=== PATIENT | female | born 1965 | race Caucasian/White ===

== ENCOUNTER → 2016-04-28 | Outpatient (CLI) | payer OTHER ==
[~2016-04-28] VITALS: Ht 175.3 cm; Wt 57.7 kg
[~2016-04-28] MED LIST: ADVAIR 250-501 EACH IH; ALBUTEROL INH INH; ALPRAZOLAM; ALPRAZOLAM PO; B12INJ IM; BUTRANS1 EAC1 TD; CELEBREX; CHANTIX1 MG PO; CYMBALTA30 MG PO; CYMBALTA60 MG PO; DESYREL50 MG PO; DILAUDID 2 MG TA2 MG PO; DILAUDID 4 MG TA4 M1 PO; DILAUDID4 MG PO; DOLOPHINE HCL10 MG; DURAGESIC1 EAC2 TD; EPIPEN 2-P0.3 MG/0.3 IM; FENTANYL PA25 MCG/HR TP; FENTANYL PA50 MCG/HR TP; FENTANYL PATCH75 MCG TP; FUROSEMIDE PO; IMITREX20 MG; KEFLEX500 MG PO; LYRICA 75 MG CA75 MG; LYRICA 75 MG CA75 MG PO; MAGNES PO; MAGNESIUM OXID400 MG PO; MEDROL4 MG PO; MEDROLDOSEPACK PO; METHADONE HCL 110 M1 PO; OMEPRAZOLE40 MG PO; OXYCODONE HCL15 MG PO; OXYCODONE HCL30 MG PO; PRILOSEC40 MG PO; RESTORIL15 MG PO; SUBOXONE 2 MG-1 EACH SL; SUBOXONE 8 MG-1 EAC1 SL; SUBOXONE 8 MG-1 EAC2 SL; TRAZODONE HCL50 MG PO; TRAZODONE PO; VALIUM10 MG PO; VENTOLIN HFA INH8 GM INH; VITAMIN D 5050000 I1 PO; VOLTAREN GEL 1100 G1 TOP; VOLTAREN100 GM TP; XANAX 0.5 MG0.5 M1 PO; XANAX 0.5 MG0.5 MG PO; XANAX XR1 MG PO; ZOLOFT 50 MG TA50 M1 PO; ZPAK PO
--- NOTE | ~2016-04-28 | HPC ---
[facility] [place] [address] PAIN MANAGEMENT CONSULTATION Name: MARCO CUMMINS Room #: REG [facility].#: [id number] Admission: 04/28/16 Attend Phys: Aldo Trivedi MD Discharge: Date of : 67 Report #: [id number] THIS REPORT FOR: //name// CC: Alex Trivedi DATE OF SERVICE: 04/28/2016 Followup visit for management of high risk medication. The patient returns to pain clinic today complaining mostly of pain in her right wrist where she has sustained an injury after a fall. I am seeing her now on a monthly basis, last seen on 04/01/2016. Urine drug screen at her last visit was appropriate. I told her that today I would provide medication for 2 months, but would not continue back on to 3 months schedule with her. She came back about 14 pounds that she had lost earlier in the year. No cause for weight loss, other than psychogenic causes with depression and anorexia have been identified. Current dose of medication is methadone 10 mg twice daily and hydromorphone 4 mg 3 times daily. She denies any significant side effects, has given me her word once again that all medications were locked up and no medications are out of her control. We reviewed her most recent urine drug screen, which shows methadone and hydromorphone as expected as well as other medications prescribed outside of our clinic including naproxen, trazodone and benzodiazepine metabolites for medicines prescribed through Dr. Gonzalez's office. PHYSICAL EXAMINATION: GENERAL: Affect is swollen. VITAL SIGNS: Blood pressure 125/85 and heart rate 78. She is 5 feet 9 and 127 pounds. BMI is 18.8. EXTREMITIES: Examination of the right wrist reveals allodynia and ____ vascular changes into the hand. She has good range of motion of the shoulder as well as the elbow. She has difficulty with movement in all direction of the wrist, which remains swollen. She has diffuse myofascial pains consistent with fibromyalgia. She has pain across her low back. Scarring from previous back surgery as well as her spinal cord stimulators examined and also mildly tender. She reports that her radicular symptoms from stimulator effectively controlled. IMPRESSION: 1. Chronic intractable pain with multiple pain generators. History of reflex sympathetic dystrophy, chronic back pain, fibromyalgia and arthropathy. 2. Recent fracture, right wrist and forearm. 3. Management of high risk medication. [address] [address] PAIN MANAGEMENT CONSULTATION Name: MARCO CUMMINS [id number] Admission: 04/28/16 Attend Phys: Aldo Trivedi MD Discharge: Date of : 67 Report #: [id number] PLAN: 1. I renewed her medication and we will continue close followup. 2. Follow up in the pain clinic in 3 months. <ELECTRONICALLY SIGNED> By: Aldo Trivedi MD 04/30/16 1329 1636 14 Aldo Trivedi MD /kam
[2016-04-28 13:14] VITALS: BP 125/85
== END ==
LOC: PAIN 04-27 08:09
DX: G89.29 Other chronic pain (principal); Z87.891 Personal history of nicotine dependence

== ENCOUNTER → 2016-08-30 | Outpatient (CLI) | payer OTHER ==
[~2016-08-30] VITALS: Ht 175.3 cm; Wt 59.0 kg
--- NOTE | ~2016-08-30 | HPC ---
[facility] [address] [place] [address] PAIN MANAGEMENT CONSULTATION Name: MARCO CUMMINS [facility] [id number] Admission: 08/30/16 Attend Phys: Aldo Trivedi MD Discharge: Date of : 67 Report #: [id number] THIS REPORT FOR: //name// CC: Alex Trivedi DATE OF SERVICE: 08/30/2016 Followup visit for chronic pain, history reflex sympathetic dystrophy and fibromyalgia. The patient returns to pain clinic today. In my absence, she saw my partner, Dr. Regan Guo on June 24 who provided her with 2 months of medication. When I saw her in the fall and in the spring of 2015, she had lost 14 pounds, was frail, pain was severe and she looked terrible. I have asked her to continue to follow closely with Dr. Gonzalez. She has suffered throughout 20 years that I have known her from chronic depression and anxiety. She also has a history of right breast cancer with lumpectomy. She had had benign tumors resected as well, all of this of course concerning with her weight loss. She returns to clinic today and I will report that she looks better. She has gained back some of the weight that she had lost and her BMI is now 19.2. At her peak, she was 24.1. Her marc was 16.6. She reports that she is drinking heavy cream and drinking other caloric food intakes in order to keep weight up. We talked about eating a good diet. She continues on opioid analgesics and her urine drug screens have been appropriate. There have been no additional drugs. No other co-polypharmacy medications that might be contributing to her weight decline. She has been taking opioids as far back as the and we have tapered her medication over the years. Today, she reports that with medication, her pain is 6-7/10 and she appears much more comfortable. Pain is worse with movement. She described it as all over. She does have a small area of scrape on her left knee where she fell. There are some warmth around the area, but it does not look pathologic to me. MEDICATIONS: Reviewed and reconciled. PHYSICAL EXAMINATION: GENERAL: Her affect is pleasant and upbeat. She scores her pain as a 5 today. This is a good number for her. VITAL SIGNS: Blood pressure is 120/70, heart rate 60. She is 5 feet and 9 inches with a BMI of 19.2. EXTREMITIES: She moves easily from sitting to standing position, walks without antalgic features. She has tenderness across her low back and multiple [address] [address] PAIN MANAGEMENT CONSULTATION Name: MARCO CUMMINS Room #: REG [facility] Dayday#: [id number] Admission: 08/30/16 Attend Phys: Aldo Trivedi MD Discharge: Date of : 67 Report #: [id number] myofascial tender points. IMPRESSION: 1. Chronic intractable pain with history of sympathetic dystrophy and chronic back pain, fibromyalgia and arthropathy. 2. Management of high risk medications under terms of an opioid agreement. 3. History of depression and insomnia, improved. 4. Complex regional pain syndrome history. PLAN: 1. I have renewed her medications under agreement. 2. I have asked for urine drug screen again today. 3. I have reviewed the opioid contract and her responsibilities for safeguarding all medications, taking them as prescribed. Time counseling the patient 20 minutes. Followup visit scheduled in 3 months. By: [id number] Aldo Trivedi MD /nt
[2016-08-30 10:03] VITALS: BP 120/70
== END ==
LOC: PAIN 06:59
DX: M54.9 Dorsalgia, unspecified (principal); G89.29 Other chronic pain; M79.7 Fibromyalgia; M12.9 Arthropathy, unspecified; F32.9 Major depressive disorder, single episode, unspecified; G47.00 Insomnia, unspecified

== ENCOUNTER → 2016-12-06 | Outpatient (CLI) | payer OTHER ==
[~2016-12-06] VITALS: Ht 175.3 cm; Wt 59.0 kg
--- NOTE | ~2016-12-06 | HPC ---
[facility] [place] [address] PAIN MANAGEMENT CONSULTATION Name: MARCO CUMMINS Room #: REG [facility].#: [id number] Admission: 12/06/16 Attend Phys: Aldo Trivedi MD Discharge: Date of : 67 Report #: [id number] THIS REPORT FOR: //name// CC: ALINA Trivedi DATE OF SERVICE: 12/06/2016 Followup visit for chronic low back pain, complex regional pain syndrome, management of high risk medication. The patient returns to pain clinic today for renewal of medication. I have been following her case for over 15 years. I remember when her first grandchild was born. That Baby is now 13. She has 10 grandchildren. She is living with her in [place], [place]. Family is locl and she has opportunity to spend time with grandchildren. She reports today that her pain score is an 8/10, chronic bilateral hip pain. Also, she complains of pain all over, burning, cramping, aching. She has a spinal cord stimulator, which has helped with her complex regional pain syndrome pain. She has been receiving opioids for over 10 years. She is on an opioid agreement, which has been signed ____ appointment including today's review her responsibilities with the medication. We talked about the opioid crisis in the [place], how medications can be used carefully taken under terms of strict agreement. Any diversion of medication is a federal offence, that led to our most recent urine drug screen. She had no Dilaudid in her drug screen performed on 08/30/2016. She reported that she had taken all her medication. Today, she reports that she had had a tablet this morning, so I repeated the urine drug screen. Methadone, which is ordered was noted in her last urine drug screen and this is provided to her through our clinic. I did notice as well that 1 year ago there was separate opioid, codeine noted in her urine, so she has had two urine drug screens that are not consistent with medications prescribed under terms of our agreement. I told her that if today we see any discrepancy then I will no longer be able to prescribe her medication for her. PHYSICAL EXAMINATION: GENERAL: She is in no current distress. She seems to be in a bad mood today. VITAL SIGNS: Her blood pressure is 127/66, heart rate is 52, respirations 14, BMI is 19.2. NECK: She has minimal tenderness of the neck. CHEST: [place] [address] PAIN MANAGEMENT CONSULTATION Name: MARCO CUMMINS Room #: REG [facility]#: [id number] Admission: 12/06/16 Attend Phys: Aldo Trivedi MD Discharge: Date of : 67 Report #: [id number] CARDIAC: Rhythm is regular. ABDOMEN: Soft. EXTREMITIES: Examination of the spine reveals mild tenderness. The spinal cord stimulator is nontender. She has mild pain in her legs. MUSCULOSKELETAL: She walks with antalgic features. IMPRESSION: 1. Chronic intractable pain with history of reflex sympathetic dystrophy. 2. Fibromyalgia. 3. History of depression and insomnia. 4. Management of high risk medication. PLAN: 1. We have stopped performing urine drug screens and a buccal screen was performed today. 2. Long discussion regarding her responsibilities renewing her written opioid contract. 3. I renewed her medication under terms of our agreement, but I have provided her only with her methadone. I will hold her hydromorphone prescription until we are certain that we are not seeing further spurious readings. Followup visit planned in 3 months. If her urine drug screen is appropriate, she can rock picker her hydromorphone later this week. By: 1601 [id number] Aldo Trivedi MD /nt
[2016-12-06 10:31] VITALS: BP 127/66
== END | disposition home or self-care (01) ==
LOC: PAIN 07:16
DX: Z76.0 Encounter for issue of repeat prescription (principal); G90.523 Complex regional pain syndrome I of lower limb, bilateral; M25.551 Pain in right hip; M25.552 Pain in left hip; M79.7 Fibromyalgia; F32.89 Other specified depressive episodes; G47.00 Insomnia, unspecified; Z79.891 Long term (current) use of opiate analgesic; Z98.890 Other specified postprocedural states; Z87.891 Personal history of nicotine dependence; Z88.0 Allergy status to penicillin; Z88.8 Allergy status to other drugs, medicaments and biological substances

== ENCOUNTER → 2017-02-10 | Outpatient (CLI) | payer OTHER ==
[~2017-02-10] VITALS: Ht 175.3 cm; Wt 60.8 kg
[~2017-02-10] MED LIST changes: +NAPROXEN500 MG PO
--- NOTE | ~2017-02-10 | HPC ---
[facility] [address] [address] PAIN MANAGEMENT CONSULTATION Name: MARCO CUMMINS [facility] [id number] Admission: 02/10/17 Attend Phys: Aldo Trivedi MD Discharge: Date of : 67 Report #: [id number] THIS REPORT FOR: //name// CC: ALINA Trivedi DATE OF SERVICE: 02/10/2017 Followup visit for chronic pain and management with high dose opioids. The patient returns to pain clinic today and she is unhappy that she has had relationship with me now for about 19 20 years and we have to talk each time she comes in about the opioid crisis, the CDC guidelines, the fact that she is over 90 morphine milligram equivalents and the need for me to be vigilant in my prescribing. She finds this is a personal ____. I have told her that we treat her the same as we treat all other patients. We have to be exceptionally cautious with our prescribing these days and we understand that even with my longstanding relationship with her, it has only been for a few visits per year for 15-30 minutes. While I trust her we must verify to the best of our ability that she is using her medication properly. She has a lot of knowledge of drug addiction which she discussed again today. She has family numbers who have been addicted to methamphetamine and she knows a fair amount about the drug culture. Although she is unaware of it that is actually a red flag, although it is not something that I would accuse her of, I need to be cautious. Her current daily dose of medication is methadone 10 mg b.i.d. and hydromorphone 4 mg t.i.d. I calculated with her her morphine milligram equivalents. Using 4 mg of morphine per mg of both methadone and of hydromorphone, we come up with MME of 128. We have been trying diligently to lower morphine milligram equivalents for each patient in our practice. We will try again today and she with some ____ has agreed to drop her hydromorphone from 90 tablets per month to 80. This is a very small drop averaging about 1 hydromorphone tablet every 2 days, but nonetheless it is tapering. My guess is that she will not miss it and she will be able to more carefully use her breakthrough medication. CHIEF COMPLAINT: Pain is an 8/10, bilateral hips, right wrist, multiple joints ache. She has a spinal cord stimulator to help with her chronic regional pain syndrome. Pain is worsened by weather. She has wrapped her right wrist, although it appears normal. All medications reviewed and reconciled under terms of our agreement. I have reviewed her opioids. In addition, she takes Cymbalta, trazodone, omeprazole, magnesium, p.r.n. Voltaren gel, albuterol, vitamin D and fluticasone. [address] [address] PAIN MANAGEMENT CONSULTATION Name: MARCO CUMMINS Room #: REG [facility]#: [id number] Admission: 02/10/17 Attend Phys: Aldo Trivedi MD Discharge: Date of : 67 Report #: [id number] PHYSICAL EXAMINATION: She is angry with me because she says that I do not trust her. Her blood pressure is 106/69, heart rate 83, respirations 14, BMI is 19.8. Her lowest BMI was 16.6 about 1 year ago. She has shown improvement recently. She says that was all related to stress. She is able to easily move from sitting to standing position, ambulates with mild antalgic features. She has tenderness across her low back. She has bilateral tenderness in the hips and the right wrist. IMPRESSION: 1. Chronic intractable pain with multijoint arthropathy. 2. Complex regional pain syndrome. 3. History of depression, insomnia and anorexia with weight loss, improved. 4. Management of high risk medication. PLAN: I renewed her hydromorphone, it is 80 tablets per month 4 mg, methadone 10 mg b.i.d. and plan to see her back in the pain clinic for those medications and 3 months date of prescription release. I reviewed her most recent urine drug screen, which shows only hydromorphone and methadone as expected. I have also given her naproxen tablets 90 one tablet to be used p.r.n. severe pain. She has to be cautious about the nonsteroidal anti-inflammatory drugs as well. <ELECTRONICALLY SIGNED> By: Aldo Trivedi MD 02/11/17 1322 1521 1756 Aldo Trivedi MD /nt
[2017-02-10 13:54] VITALS: BP 106/69
== END ==
LOC: PAIN 07:10
DX: M12.89 Other specific arthropathies, not elsewhere classified, multiple sites (principal); G90.59 Complex regional pain syndrome I of other specified site; F32.9 Major depressive disorder, single episode, unspecified; Z88.0 Allergy status to penicillin; Z88.5 Allergy status to narcotic agent; Z88.6 Allergy status to analgesic agent; Z91.030 Bee allergy status; F17.200 Nicotine dependence, unspecified, uncomplicated; Z79.891 Long term (current) use of opiate analgesic

== ENCOUNTER → 2017-05-30 | Outpatient (CLI) | payer OTHER ==
[~2017-05-30] VITALS: Ht 175.3 cm; Wt 58.9 kg
--- NOTE | ~2017-05-30 | CRIT ---
[facility] [place] [address] CRITICAL CARE NOTE Name: MARCO CUMMINS Room #: REG [facility] Mar.#: [id number] Admission: 05/30/17 Attend Phys: Aldo Trivedi MD Discharge: Date of : 67 Report #: [id number] THIS REPORT FOR: //name// CC: Alex Trivedi DATE OF SERVICE: 05/30/2017 REASON FOR VISIT: Followup visit for high-dose opioid use. HISTORY OF PRESENT ILLNESS: The patient returns to pain clinic today with her . I have known this couple for over 20 years. She first saw us in the early 1999s with complex regional pain syndrome following surgery. She has had multiple treatments over the years, which have included injections, surgery and she is now on her fifth battery with her spinal cord stimulator. She has also been managed at times with very high-dose opioids. She remains above the CDC guideline of 90 morphine equivalents at 128 MME. We discussed this at some length today during her visit. She and her are taking care of grandchildren. Their daughters have had marital difficulties and the difficult job of raising children has fallen onto the grandparents, although the patient is only 52 and this is a difficult task and she and her today, both described the challenges in raising their grandchildren. This has affected her mood, I believe, and she seems depressed today. In the past, she has been very depressed and at one time, I was concerned due to significant weight loss. Her BMI was below 18 at one point and has rebounded now to a BMI of 19.2. She still looks slender and gaunt caring only 129 pounds on her 5 feet 9 inches frame. She reports that even with her pain medication, her pain intensity is 8. She has functional limitations with standing and weightbearing, although she pushes through it with pain medication. She is not a fall risk and has not fallen. She has no history of hypertension and is not on blood thinners. PHYSICAL EXAMINATION: GENERAL: Her affect is a bit angry and depressed. VITAL SIGNS: Her blood pressure 104/62, heart rate 67, respiration is 90 and her O2 sat is 98. Her pain intensity is 8. MUSCULOSKELETAL: She is able to move from a sitting to standing position and walks without assistance. She has tenderness across her low back and into her right leg. As noted previously, there is atrophy of the lower extremities, particularly on the right where she suffered from chronic regional pain syndrome following surgery. She has mild allodynia. Her spinal cord stimulator incisions looked fine. The battery is in good location and nontender. [address] [address] CRITICAL CARE NOTE Name: MARCO CUMMINS [facility] [id number] Admission: 05/30/17 Attend Phys: Aldo Trivedi MD Discharge: Date of : 67 Report #: [id number] IMPRESSION: 1. Complex regional pain syndrome, chronic. 2. Chronic back pain. 3. Fibromyalgia. 4. Management of high dose opioid medication under terms of written opioid agreement. PLAN: Her current daily dose of methadone is 10 mg b.i.d. and she uses hydromorphone 4 mg 3 times a day. This calculates to 80 mg morphine equivalent of methadone and 48 morphine equivalents of hydromorphone. The total is 128 and her goal will be to try and decrease her gradually towards the CDC guideline of 90. It is frustrating for the patient who feels that there is little else she can do other than managed with medication. I have done opioid risk tools on her and she has scored at a low level. She is, however, around drug addiction and alludes to it today again in her office visit. She understands the importance of safeguarding her medications. Buccal drug screens will be performed intermittently. Followup visit planned in 3 months. No adjustment in medication today. She was given methadone 10 mg b.i.d. and hydromorphone 4 mg 3 times a day under terms of our written agreement. <ELECTRONICALLY SIGNED> By: Aldo Trivedi MD 06/22/17 1640 23 [id number] Aldo Trivedi MD /nt
[2017-05-30 13:29] VITALS: BP 104/62
== END ==
LOC: PAIN 07:06
DX: G90.50 Complex regional pain syndrome I, unspecified (principal); M54.9 Dorsalgia, unspecified; M79.7 Fibromyalgia; F11.90 Opioid use, unspecified, uncomplicated

== ENCOUNTER → 2017-09-01 | Outpatient (CLI) | payer OTHER ==
[~2017-09-01] VITALS: Ht 175.3 cm; Wt 61.1 kg
--- NOTE | ~2017-09-01 | HPC ---
[facility] [place] [address] PAIN MANAGEMENT CONSULTATION Name: MARCO CUMMINS Room #: REG [facility].#: [id number] Admission: 09/01/17 Attend Phys: Aldo Trivedi MD Discharge: Date of : 67 Report #: [id number] THIS REPORT FOR: //name// CC: Alex Trivedi DATE OF SERVICE: 09/01/2017 Followup visit for chronic lower extremity pain, complex regional pain syndrome. The patient returns to pain clinic today for renewal of her medication. We once again had a lengthy discussion about her medicine. Her morphine milligram equivalent dose is 128 based upon the high morphine equivalent rate of her 2 medications, methadone and hydromorphone, both of which are equal to 4 mg of morphine per mg. She takes her methadone twice daily, uses the hydromorphone on a breakthrough basis, but averages 3 per day over the course of a month. She has no significant side effects, is grateful for the pain relief that she receives. I have known the patient for over 20 years and today we had a long talk about her functional activity level. Since March she and her have been taking care of foster children. At her last visit they described this as grandchildren. I am not sure if these are her own grandchildren or foster children. Today, she has told me that they are not related to her. The children are young, between the ages of 2 and 10. This requires a great deal of energy on her part. She reports that she is supported through her restorationism. The pain medication has allowed her to be active in providing this aggressive care. I discussed some of this in my note of May. Medications are reviewed and reconciled. The only medications provided in our clinic are the opioids. She occasionally takes Naprosyn as a supplement and remains on Cymbalta, trazodone, omeprazole. Other significant medical history includes asthma, gastroesophageal reflux disease, bilateral knee surgeries, use of spinal cord stimulator for chronic pain related to complex regional pain syndrome and history of depression and anxiety. She is stable at this time. PHYSICAL EXAMINATION: GENERAL: She looks better than I have seen her in a bit, she seems more fit, muscles were toned. This may be from chasing those small children around the house. VITAL SIGNS: Blood pressure is 103/58, heart rate 65, BMI is almost back to 20 at 19.9. CHEST: Clear. [facility] [address] [place] [address] PAIN MANAGEMENT CONSULTATION Name: MARCO CUMMINS [facility] [id number] Admission: 09/01/17 Attend Phys: Aldo Trivedi MD Discharge: Date of : 67 Report #: [id number] CARDIAC: Rhythm is regular. ABDOMEN: Soft. BACK: Spine is normal. EXTREMITIES: She has some discomfort and tenderness in her legs. Pain with bilateral hip rotation, internal and external rotation. There is also pain in her right wrist. Localized tenderness, but no swelling. IMPRESSION: 1. Chronic intractable pain with complex regional pain syndrome. 2. Chronic use of opioid medication, currently at a morphine milligram equivalent dose of 128. 3. Fibromyalgia. 4. Tenderness of right wrist, likely due to overuse. RECOMMENDATIONS: We will continue her current medicines. I have asked her to try and taper her medications on her own. At next visit, I have discussed reducing her methadone to 10 mg in the evening and 5 at night or we can reduce her dose to 7.5 morning and evening. This will reduce her MME from 128 to 108. I think it is time that we try and test the lower levels of her need for medication. By: 1448 [id number] Aldo Trivedi MD /nt
[2017-09-01 13:09] VITALS: BP 103/58
== END ==
LOC: PAIN 05:49
DX: G89.4 Chronic pain syndrome (principal); M25.531 Pain in right wrist; M79.7 Fibromyalgia

== ENCOUNTER → 2018-01-12 | Outpatient (CLI) | payer OTHER ==
[~2018-01-12] VITALS: Ht 175.3 cm; Wt 59.7 kg
--- NOTE | ~2018-01-12 | HPC ---
[facility] [address] [place] [address] PAIN MANAGEMENT CONSULTATION Name: MARCO CUMMINS Room #: [facility].#: [id number] Admission: 01/12/18 Attend Phys: Aldo Trivedi MD Discharge: Date of : 67 Report #: [id number] THIS REPORT FOR: //name// CC: Alex Trivedi DATE OF SERVICE: 01/12/2018 Followup visit for chronic leg pain, complex regional pain syndrome. The patient is here today and I am proud to say that she has made tremendous strides in reducing her reliance on opioid medication. She was last seen in August. She was given 3 months of medication. She is now almost 4 months and 1 week out from the point in time when I provided her with what was intended to be 3 months of medication. She has done so by reducing both her methadone and her hydromorphone as discussed at her last visit. She is here today with her , Fatimah. She continues to remain active. She and her have taken on foster children. We had a long talk today about their role in providing care to these children. She supports it through a yarsani. She also helps care for her grandchildren. She seems upbeat and positive. She seems to be doing well despite the reduction in her pain medication. She scores her pain intensity as an 8/10. Her blood pressure 100/58, heart rate 67, respirations 14, BMI is 19.4. She remains underweight. She was counseled today about dietary supplements if necessary. She has no difficulty moving from sitting to standing position. She is not a fall risk. She has no problems with weightbearing activities in her office. Tenderness across her low back and some discomfort in her leg is noted. IMPRESSION: 1. Chronic intractable pain with complex regional pain syndrome. 2. Chronic use of opioid medication. We will reduce her medication today based upon her recent titration on her own to methadone 45 tablets per month, hydromorphone 75 tablets per month. This will result in roughly a morphine milligram equivalency of 100, down from 135. Her maximum MME was as high as 200 in the past or above. [facility] [address] [place] [address] PAIN MANAGEMENT CONSULTATION Name: MARCO CUMMINS [facility]: [facility] [id number] Admission: 01/12/18 Attend Phys: Aldo Trivedi MD Discharge: Date of : 67 Report #: [id number] Followup visit is planned in 3 months. By: [id number] Aldo Trivedi MD /nt
[2018-01-12 14:30] VITALS: BP 100/58
== END ==
LOC: PAIN 07:12
DX: G90.523 Complex regional pain syndrome I of lower limb, bilateral (principal); G89.4 Chronic pain syndrome; Z79.891 Long term (current) use of opiate analgesic

== ENCOUNTER → 2018-04-20 | Outpatient (CLI) | payer OTHER ==
[~2018-04-20] VITALS: Ht 175.3 cm; Wt 60.1 kg
[~2018-04-20] MED LIST changes: +MIRTAZAPINE7.5 MG PO; +NARCAN4 MG NASAL
[2018-04-20 14:11] VITALS: BP 136/67
--- NOTE | 2018-04-20 14:32 | NUR ---
Pain Clinic Assessment: 1. History of Osteoarthritis: neck History of Rheumatoid Arthritis: none 2. Height: 5 ft. 9 in. 175.3 cm. Weight: 132.6 lb. oz. 60.147 kg. Patient's BMI: 19.6 3. Vital Signs: BP: 136/67 Pulse: 80 Resp: 14 Temp: 02 Sat: 100 ECG Mon: 4. Pain Intensity: 8-9 5. Fall Risk: Dizziness: N Needs help standing or walking: N Fallen in the last 3 months: Y Fall risk comments: 6. Patient on Blood Thinner: None 7. History of Hypertension: N 8. Opioid Therapy greater than 6 weeks: Y Opiate Contract Signed: 05/30/17 9. Risk Assessment Tool Provided: low 10. Functional Assessment Tool: 11. Recreational Drug Use: Never Drug Type: Tobacco Use: Current Some Day Smoker Tobacco Type: E-Cigarettes Amount or Packs/day: 1/4 DAY How Many Years: Alcohol Use: No Frequency: Quant:
--- NOTE | 2018-04-21 15:11 | EKG ---
[address] [place] [address] ELECTROCARDIOGRAM REPORT Name: MARCO CUMMINS [id number] Admission: 04/20/18 Attend Phys: Aldo Trivedi MD Discharge: Date of : 67 Report #: [id number] THIS REPORT FOR: //name// [facility] Test Date: 2018-04-20 Test Time: 15:50:33 Pat Name: MARCO CUMMINS Department: Room: Gender: F Mobile Product Manager: Acacia AYALA : 1965 Requested By: Aldo Trivedi Order Number: [id number] : [facility] Clinton Measurements Intervals [place] Rate: 51 P: 74 [place]: 133 QRS: 65 QRSD: 106 T: 65 QT: 410 QTc: 378 Interpretive Statements Sinus rhythm Right atrial enlargement Minimal ST depression, inferior leads Artifact in lead(s) II,III,aVR,aVL,aVF,V4,V5,V6 Compared to ECG 05/31/2012 09:02:24 Atrial abnormality now present ST (T wave) deviation now present Electronically Signed On 04-21-2018 15:11:08 SUPERVISORY INVESTIGATIVE SPECIALIST by [facility] Clinton [email or web address] <ELECTRONICALLY SIGNED> By: Kaiser Clinton MD 04/21/18 1511 1550 1550 Kaiser Clinton MD /EPI
--- NOTE | 2018-04-26 11:18 | HPC ---
[facility] [address] [place] [address] PAIN MANAGEMENT CONSULTATION Name: MARCO CUMMINS [facility] [id number] Admission: 04/20/18 Attend Phys: Aldo Trivedi MD Discharge: Date of : 67 Report #: [id number] THIS REPORT FOR: //name// CC: Alex Trivedi DATE OF SERVICE: 04/20/2018 CHIEF COMPLAINT: Severe low back pain, severe left leg pain, severe depression. HISTORY OF PRESENT ILLNESS: The patient presents to the pain clinic today with her . She is depressed and extremely anxious. She has been taken off several of her antidepressant medications over the course of the last several months. I spent roughly 45 minutes with her in consultation today and further discussed our medication management options. She has been on polypharmacy and opioid medication for complex regional pain syndrome dating back almost 20 years now. I have been involved in her care for at least 15. Much of her stress and anxiety at this point in time comes from her grandchildren. She described them first as foster children that she was planning on adopting. They are very young, 2, 4 and 7, I believe, and are children of her son and his . The children have been raised according to the patient in a very difficult environment of neglect and poor supervision. As grandparents, they felt an obligation to take the children in. This has created obviously a great deal of additional stress in her life becoming apparent now for a second time to challenging young children. Her has been supportive. She has suffered from insomnia, which she describes as pain related; however, in addition to her stress related to the children, she also carries a number of different post-traumatic stress disorder activities that have troubled her off and on over the years related to her own upbringing and she cried as she describes them as well today. She does not sleep more than a couple of hours a night. She can fall asleep, but wakes in the night, does not find it easier to go back to sleep and then will stay up, return to the TV or other activities. She has been trying [id number] regimens and most recently Dr. Gonzalez gave her Valium 5 mg 1 at bedtime which has used, worked only modestly. Her pain she says is severe at night. Often times worsened by the anxiety of the dark. She scores the pain as an 8 or 9/10 despite her use of both methadone and breakthrough hydromorphone. Methadone seems to be [place] [address] PAIN MANAGEMENT CONSULTATION Name: MARCO CUMMINS Room #: REG [facility]#: [id number] Admission: 04/20/18 Attend Phys: Aldo Trivedi MD Discharge: Date of : 67 Report #: [id number] a spinal cord stimulator, which is constantly activated. It is worsened by weather and movement. CURRENT MEDICATIONS: Methadone 15 mg daily, taken in divided dose; hydromorphone 4 mg, taken 3 times a day maximum for breakthrough medication, she is allowed 75 tablets per month as we tried to taper; naproxen 500 mg p.r.n.; Imitrex p.r.n. headache; Cymbalta has been discontinued; trazodone has been discontinued; omeprazole 40 mg daily; diclofenac gel to the leg as needed; magnesium oxide; albuterol; vitamin D; vitamin B12 injections intramuscular and Advair Diskus. Valium 5 mg at bedtime is new since last visit. SOCIAL HISTORY: She denies tobacco, but has secondhand smoke from her . She denies any form of alcohol or illegal drug use. She has passed urine drug screens in the past 12-18 months. [place] prescription drug monitoring review from the [facility] does not show her opioid medication. Many of the smaller pharmacies in smaller towns in [place] have not registered. We have found that there are some discrepancies. She tells me she fills that in the pharmacy close to home, [facility] in [place], [place]. PHYSICAL EXAMINATION: GENERAL: She is anxious, angry, tearful, depressed and worn out by the stressful child-bearing situation at home. VITAL SIGNS: Her blood pressure is 137/67, heart rate 80, respirations 14, BMI 19.6. CHEST: Clear. CARDIAC: Rhythm is regular. MUSCULOSKELETAL: Examination of her low back is negative. She has had scars noted on her back and on her knee from previous surgeries including spinal cord stimulator placement and right knee surgery. She has some allodynia, mild, in the left leg from complex regional pain syndrome. Straight leg raising is positive. Mild muscle spasm is noted in the calf. IMPRESSION: 1. Complex regional pain syndrome. 2. Severe stress related disorder, which is exacerbating chronic pain. 3. Insomnia. 4. Evidence of severe depression. 5. Management of high risk medications under terms of written opioid agreement. 1. I spent 20 minutes in counseling. She was referred to programs in the city through [facility] which are free and are support programs that I think would be valuable for her. [facility] [address] [place] [address] PAIN MANAGEMENT CONSULTATION Name: MARCO CUMMINS Room #: REG [facility] Naylor#: [id number] Admission: 04/20/18 Attend Phys: Aldo Trivedi MD Discharge: Date of : 67 Report #: [id number] 2. A call was placed to Dr. Greyson Gonzalez both on the and , but we were unable to get through his office phone number. I would like to see if Dr. Gonzalez can help locate supportive psychological counseling within her home base. I am not sure of who we could refer her to. 3. Discussed reaching out to friends and [facility] based resources to help the children. 4. She is not smoking, but she is using a vape pen which is high in nicotine. I have recommended that she is to discontinue this, which may be worsening her sleep habits as nicotine is a known stimulant and she is referring that at night for stress management. 5. Discontinue hydromorphone in place of a slightly higher dose of methadone taken on a regular basis to maintain a baseline pain medication through the night. She will go from roughly 55 MME to 75 MME by taking methadone 10 mg in the morning, 5 mg at noon and 10 mg at bedtime. 6. Begin mirtazapine 7.5 mg at bedtime for antidepressant and sedation to aid with sleep. This may have some pain relieving benefits as well. 7. Discussed the importance of stress management techniques including meditation and having some free time each day for herself away from the child activities. Medications were written for her new dose of methadone. She understands she will be completely off short-acting Dilaudid. She will call the clinic if there are any issues. Followup visit planned in 1-3 months. I spent 45 minutes in the room with the patient and her and additional time on the phone trying to reach her primary care physician. Complex biopsychosocial consultation. <ELECTRONICALLY SIGNED> By: Aldo Trivedi MD 04/26/18 1118 1613 1418 Aldo Trivedi MD /nt
== END | disposition home or self-care (01) ==
LOC: PAIN 03-02 06:30
DX: G90.523 Complex regional pain syndrome I of lower limb, bilateral (principal); G47.00 Insomnia, unspecified; F32.9 Major depressive disorder, single episode, unspecified; Z79.891 Long term (current) use of opiate analgesic; Z98.890 Other specified postprocedural states; Z88.0 Allergy status to penicillin; Z88.8 Allergy status to other drugs, medicaments and biological substances; Z79.899 Other long term (current) drug therapy

== ENCOUNTER → 2018-05-18 | Outpatient (CLI) | payer OTHER ==
[~2018-05-18] VITALS: Ht 175.3 cm; Wt 61.9 kg
--- NOTE | ~2018-05-18 | HPC ---
[facility] [place] [address] PAIN MANAGEMENT CONSULTATION Name: MARCO CUMMINS Room #: REG [facility] Manuel.#: [id number] Admission: 05/18/18 Attend Phys: Aldo Trivedi MD Discharge: Date of : 67 Report #: [id number] THIS REPORT FOR: //name// CC: Alex Trivedi DATE OF SERVICE: 05/18/2018 Followup visit for severe low back pain, now severe left hip pain with local tenderness and history of complex regional pain syndrome. Severe depression improved. The patient returns to pain clinic today with her . She was seen 1 month ago. At that time, she was nearly despondent. I spent 45 minutes with them listening to their issues. I heard a great deal about the challenges they are having with family and I heard more today. I neglected to note at my last visit, but heard again today that there are also problems with additional family members who are living in the home. In the course of the last month, the sister of the patient and her mother have jeanine out of the house where they were staying. They were an additional stressor along with the young children. Apparently, there has been some community outreach to help with the children. The patient was started on a new antidepressant, Remeron 7.5 mg at bedtime because of the sedating effects and the hope that this might allow her to sleep more. We discussed a great deal about sleep at her last visit. She is here today because apparently a phone call was made to the clinic that she said her pain was completely out of control, that weather was contributing to it, that the patient had reached out to some pain organization and was told that her doctor should never have taken her off of her breakthrough hydromorphone. Once again, her pain seems to be most severe at night. She changes positions frequently. Although she falls asleep, she says she awakens in the night and does not go back to sleep. She continues to use her spinal cord stimulator. I reviewed all of her medications. She is now on methadone 25 mg 3 times daily and hydromorphone 4 mg are gone. She tapered off the medication as requested. She uses naproxen p.r.n. She reports that she is continuing to take her Remeron. PHYSICAL EXAMINATION: Marked improvement in her affect today. Her eyes are brighter and clearer. She was nearly hysterical at her last visit, crying throughout the visit, angry and extremely stressed out. Today, she is calmer in [address] [address] PAIN MANAGEMENT CONSULTATION Name: MARCO CUMMINS Room #: REG [facility]#: [id number] Admission: 05/18/18 Attend Phys: Aldo Trivedi MD Discharge: Date of : 67 Report #: [id number] the face of the visit, did not cry at any point. She smiled as she related stories. On this single visit, there is a marked improvement in her affect. Her blood pressure is 99/65, heart rate 73, respirations 14. Her BMI is 20.1. She is able to move easily from sitting to standing position. I placed her in a gown, so I could do a more extensive examination of the new left hip pain. She was able to change clothes easily with no evidence of antalgic features, no discomfort putting the clothes on, no allodynia. On physical exam of the lower extremity, she has allodynia when asked about it specifically, but as I examined her throughout the exam she had no discomfort with touching of the leg in any form. Both legs appeared to be fairly similar. The room was cold, both legs slightly mottled. No scars were noted on the knees. They have healed so nicely, they are nearly invisible. Straight leg raising is negative. Sensation is intact. Deep tendon reflexes are trace bilaterally at knees and ankles. Examination of the left hip, however, reveals marked tenderness over the greater trochanter. Examination of the spine reveals battery for the pulse generator in the left lower abdomen. Scars are present, which are sensitive all the way up to the bra line in the mid back. IMPRESSION: 1. Chronic left and right leg pain. She reports a history of complex regional pain syndrome. By my exam, I think her CRPS, is much improved. 2. Depression, anxiety, and stress-related disorder. It is improved as well on appearance. The patient and her complained otherwise. 3. Sleep disorder. 4. Management of high risk medications. RECOMMENDATIONS: I felt that the patient's is little aggressive today, sharply telling me that I had reduced her medication and I did not have to watch her suffer as a result. I told them directly to his face that we had taken her off of the hydromorphone and that I was not comfortable reestablishing it. She was now on methadone, which we have found to be extremely helpful for neuropathic pain and for patients with complex nerve injuries. She is on a reasonable dose at 75 MME, which she has tolerated well. On outward appearances, I think she is improved. I would like for her to continue her on her Remeron as well. I discussed possibility of adding gabapentin or Lyrica. She has been on it before. We also offered to treat the trochanteric bursitis on the left with an injection. At the time of departure, she reported that she would have Dr. Alex Gonzalez, her primary care physician perform the injection for her. When things were little contentious, I suggested that we ask for a second opinion. I offered any of the local pain clinics, either [facility], [facility]. Dr. Mohsen Aquino who works at [facility] and the patient has also [facility] and I felt that that would be a fine place for a second opinion. She will make an appointment. We will send her records over. [address] [place] [address] PAIN MANAGEMENT CONSULTATION Name: MARCO CUMMINS Anai Room #: [facility] [id number] Admission: 05/18/18 Attend Phys: Aldo Trivedi MD Discharge: Date of : 67 Report #: [id number] I am not interested in treating her anxiety disorder and depression with additional short-acting opioid. I would like very much for her to see a counselor for stress management. I will again try and reach Dr. Gonzalez's office. By: [id number] Aldo Trivedi MD /nt
[2018-05-18 14:15] VITALS: BP 99/65
--- NOTE | 2018-05-18 14:29 | NUR ---
Pain Clinic Assessment: 1. History of Osteoarthritis: neck History of Rheumatoid Arthritis: none 2. Height: 5 ft. 9 in. 175.3 cm. Weight: 136.4 lb. oz. 61.871 kg. Patient's BMI: 20.1 3. Vital Signs: BP: 99/65 Pulse: 73 Resp: 14 Temp: 02 Sat: 98 ECG Mon: 4. Pain Intensity: 8-9 5. Fall Risk: Dizziness: N Needs help standing or walking: N Fallen in the last 3 months: N Fall risk comments: 6. Patient on Blood Thinner: None 7. History of Hypertension: N 8. Opioid Therapy greater than 6 weeks: Y Opiate Contract Signed: 05/30/17 9. Risk Assessment Tool Provided: low 10. Functional Assessment Tool: 11. Recreational Drug Use: Never Drug Type: Tobacco Use: Current Some Day Smoker Tobacco Type: Amount or Packs/day: How Many Years: Alcohol Use: No Frequency: Quant:
== END ==
LOC: PAIN 07:18
DX: M25.552 Pain in left hip (principal); M25.551 Pain in right hip; G89.29 Other chronic pain; G47.9 Sleep disorder, unspecified; F32.9 Major depressive disorder, single episode, unspecified; F41.9 Anxiety disorder, unspecified; Z79.899 Other long term (current) drug therapy

== ENCOUNTER → 2018-08-03 | Outpatient (CLI) | payer OTHER ==
[~2018-08-03] VITALS: Ht 175.3 cm; Wt 61.4 kg
[2018-08-03 09:35] VITALS: BP 113/55
--- NOTE | 2018-08-03 09:54 | NUR ---
Pain Clinic Assessment: 1. History of Osteoarthritis: neck History of Rheumatoid Arthritis: none 2. Height: 5 ft. 9 in. 175.3 cm. Weight: 135.4 lb. oz. 61.417 kg. Patient's BMI: 20.0 3. Vital Signs: BP: 113/55 Pulse: 60 Resp: 14 Temp: 02 Sat: 100 ECG Mon: 4. Pain Intensity: 7-8 5. Fall Risk: Dizziness: N Needs help standing or walking: N Fallen in the last 3 months: N Fall risk comments: 6. Patient on Blood Thinner: None 7. History of Hypertension: N 8. Opioid Therapy greater than 6 weeks: Y Opiate Contract Signed: 05/30/17 9. Risk Assessment Tool Provided: low 10. Functional Assessment Tool: 11. Recreational Drug Use: Never Drug Type: Tobacco Use: Current Some Day Smoker Tobacco Type: Amount or Packs/day: How Many Years: Alcohol Use: No Frequency: Quant:
--- NOTE | 2018-08-04 07:11 | HPC ---
[facility] [place] [address] PAIN MANAGEMENT CONSULTATION Name: MARCO CUMMINS [id number] Admission: 08/03/18 ������������������ Attend Phys: Lorrie Moore Discharge: ������������������ Date of : 67 Report #: [id number] THIS REPORT FOR: //name// CC: Lorrie Carusocynthialena Gonzalez DATE OF SERVICE: 08/03/2018 CHIEF COMPLAINT: Chronic leg pain, complex regional pain syndrome. HISTORY OF PRESENT ILLNESS: The patient returns to the pain clinic today for a refill of her medications. She was last seen in 04/[address] Aldo Trivedi. At that time, she was going to seek a second opinion from a different facility. We have been having problems getting her records sent to [facility]. The patient will take those with her today to them to get a second opinion that Dr. Trivedi recommended for the patient. The patient tells me that it has been a hard winter. Her pain is increased with stress, which she is having quite a stressful situation at home, rating her pain score today at 7/8, mostly a dull, burning, sharp pain in her joints and hip. She is using her spinal cord stimulator all the time. She is having to recharge it more frequently and wondering if she will need her battery replaced soon. She tells me that she is going to be adopting her grandchildren tomorrow and she is hopeful that the stress in her life will be decreased after this event. She knows it is still a long process, but this is a good step forward and relieving some stressful situations at home. The patient would like a refill of her methadone today. She will personally take her records to [facility] and see if she can set up her second opinion consult with them. She denies any problems with constipation or daytime sleepiness. ALLERGIES: BEE STINGS, PENICILLIN, CODEINE, SOMA, AND IBUPROFEN. CURRENT LIST OF MEDICATIONS: Methadone 10 mg tablets 10 in the morning, 5 midday 10 in the evening, naproxen 500 mg daily, Imitrex as needed, omeprazole 40 mg b.i.d., Voltaren gel as needed, magnesium oxide 40 mg daily, Ventolin inhaler as needed, vitamin D daily, vitamin B12 daily, and Advair daily. PQRS: 1. The patient has arthritic changes in her neck and her back and denies rheumatoid arthritis. 2. Height is 5 feet 9 inches, weight is 135, BMI is 20. 3. Vital signs: Blood pressure 113/55, pulse is 60, respirations 14, oxygen sat is 100. 4. Pain score is 7. 5. Denies dizziness. Does not need help walking or standing. She has not fallen in the last 3 months. 6. The patient is not on any blood thinners. She does not take medicine for [address] [address] PAIN MANAGEMENT CONSULTATION Name: MARCO CUMMINS [id number] Admission: 08/03/18 ������������������ Attend Phys: Lorrie Moore Discharge: ������������������ Date of : 67 Report #: [id number] hypertension. 7. Opiate therapy is greater than 6 weeks; therefore, an opioid signed contract is on the chart. 8. Risk assessment tool is low. Functional assessment of 32. 9. Recreational drug use, she denies. She smokes some cigarettes occasionally and does not drink alcohol. We did check the prescription monitoring system. The patient's medicines are not listed there in [place], so we contacted [facility]. The patient is filling appropriately for her methadone from Dr. Aldo Trivedi in a timely fashion. She tells me she safeguards all of her medication and there is a recent drug screen on the chart. PHYSICAL EXAMINATION: GENERAL: The patient is quite tearful today at times, other times she is very calm and at times slightly depressed. She is alert and orientated, very thin 53-year-old female. HEENT: Normocephalic, atraumatic. Extraocular eye muscles are intact. Mucous membranes are moist. MUSCULOSKELETAL: The patient complains of pain in her lower back that radiates down her left leg. The patient tells me that this pain seems to be getting worse despite using her spinal cord stimulator. She complains of a burning, sharp pain. Lower extremity strength judged to be 5/5 in all major muscle groups. We reviewed the fact that opiate medications are being used to provide analgesia adequate to support activities of daily living, not attempting to achieve a specific pain score on the 0-10 Visual Analog Scale. The current opiate medications are providing sufficient analgesia to allow the patient to participate in activities of daily living. The patient is not exhibiting any aberrant behavior suggestive of drug diversion. The patient is not having any adverse reactions to medications. The patient is not suffering from daytime somnolence or mental acuity changes. The patient is managing opiate-induced constipation with appropriate kmzz-jws-convuwq agents and dietary considerations. The patient was counseled on concern for caution with operating a motor vehicle while using opiate medications. A physical exam was performed and the patient's functional status was evaluated. All patients with back pain were advised against the bed rest greater than 4 days and were advised to return to normal activities. Pain score assessment was noted and the treatment plan was reviewed with the patient. All current medications, both prescribed and OTC were reviewed and reconciled on the electronic medical record. Tobacco screening was accomplished and smoking cessation was advised when indicated. BMI was noted and diet/exercise modification was recommended for all patients following outside normal parameters. [facility] [address] [place] [address] PAIN MANAGEMENT CONSULTATION Name: MARCO CUMMINS Room #: REG [facility].#: [id number] Admission: 08/03/18 ������������������ Attend Phys: Lorrie Moore Discharge: ������������������ Date of : 67 Report #: [id number] I reviewed with the patient today their responsibilities to safeguard prescription medications, reviewed their responsibility to utilize medications only as prescribed by the physician. They are to seek and receive pain medications only from 1 physician group ( [facility]). They are to use 1 pharmacy and keep the clinic informed if they change pharmacies. Their responsibilities include making followup visits in a timely fashion and to avoid abrupt discontinuation of medication usage. Their responsibilities further include bringing their medications (bottles from the pharmacy with residual pills) to the visit for possible confirmation of pill counts and the patient understands it is their responsibility to submit to random drug screens to ensure both that the medications prescribed are present, and that no other controlled substances are present. All prescriptions provided today were generated electronically. ASSESSMENT: 1. Chronic bilateral leg pain, left greater than right, history of complex regional pain syndrome with placement of spinal cord stimulator. 2. Depression. 3. Anxiety. 4. Sleep disorder. 5. Management of high risk medication under terms of written opioid agreement. PLAN: 1. The patient is asking for her records again today since medical records has not release them to her and not send them to [facility] for a second opinion that the patient is trying to get that Dr. Aldo Trivedi did ask for when she saw him in 04/2018. I will have the release on the chart and I will give her the place to take her records to [facility] to seek out the second opinion. 2. We did examine the patient today and think maybe an epidural might be helpful in relieving some of her low back and left leg pain. The patient has not had an epidural since 2012. This may benefit some of her increasing pain that she is having. She will make an appointment with Dr. Trivedi in the future for this, but she will also talk to [facility] about this as an option. 3. The patient tells me she is having to recharge her battery quite frequently now. She has had to do this in the past when her battery of her spinal cord stimulator gets depleted. She is thinking she may need to have it replaced. We did talk about a new battery from [employer] and I gave her written information regarding this. This may be a possibility and is compatible with her current leads. She would just get her battery replaced by Dr. Ray who has replaced her batteries in the past. She will look at the information and we will discuss it further at another appointment. 4. Scripts given today for the patient for methadone 10 mg tablets #75, to be released today, 4-week and 8-week. 5. We did talk about the mirtazapine that she was given at her last visit. The patient tells me she took it for a month at bedtime. She did not notice any [address] [address] PAIN MANAGEMENT CONSULTATION Name: MARCO CUMMINS Anai Room #: REG [facility] Dayday#: [id number] Admission: 08/03/18 ������������������ Attend Phys: Lorrie Moore Discharge: ������������������ Date of : 67 Report #: [id number] help in her sleep. She still does not sleep well at all. There was no refill, so she only took it for one month. The patient tells me that her pain is more severe at night and she just has still problems, but she said she does not want to take a medicine just to take it since it is not helpful. She continues to use her spinal cord stimulator though at night. 6. The patient will follow up in 3 months' time period unless she scheduled for epidural with Dr. Aldo Trivedi before. 7. Dr. Trivedi did come and discuss this case with the patient and collaborated care. He will talk to the doctors at Pain also about more this case. ��������������������������������������������� <ELECTRONICALLY SIGNED> ���������������������������������������� By: Lorrie Moore ��������������������������������������������� 08/04/18 0711 1123 27 Lorrie Moore /kam
== END ==
LOC: PAIN 07-27 08:43
DX: G90.523 Complex regional pain syndrome I of lower limb, bilateral (principal); F32.9 Major depressive disorder, single episode, unspecified; F41.9 Anxiety disorder, unspecified; G47.9 Sleep disorder, unspecified; Z79.891 Long term (current) use of opiate analgesic; Z79.899 Other long term (current) drug therapy

== ENCOUNTER → 2018-11-06 | Outpatient (CLI) | payer OTHER ==
[~2018-11-06] VITALS: Ht 175.3 cm; Wt 59.1 kg
[2018-11-06 10:17] VITALS: BP 120/68
--- NOTE | 2018-11-06 10:30 | NUR ---
Pain Clinic Assessment: 1. History of Osteoarthritis: neck History of Rheumatoid Arthritis: none 2. Height: 5 ft. 9 in. 175.3 cm. Weight: 130.4 lb. oz. 59.149 kg. Patient's BMI: 19.2 3. Vital Signs: BP: 120/68 Pulse: 58 Resp: 14 Temp: 02 Sat: 100 ECG Mon: 4. Pain Intensity: 7 5. Fall Risk: Dizziness: N Needs help standing or walking: N Fallen in the last 3 months: N Fall risk comments: 6. Patient on Blood Thinner: None 7. History of Hypertension: N 8. Opioid Therapy greater than 6 weeks: Y Opiate Contract Signed: 05/30/17 9. Risk Assessment Tool Provided: low 10. Functional Assessment Tool: 11. Recreational Drug Use: Never Drug Type: Tobacco Use: Current Some Day Smoker Tobacco Type: Amount or Packs/day: VAPING How Many Years: Alcohol Use: No Frequency: Quant:
--- NOTE | 2018-11-06 15:34 | HPC ---
[facility] [address] [place] [address] PAIN MANAGEMENT CONSULTATION Name: MARCO CUMMINS [facility] [id number] Admission: 11/06/18 ������������������ Attend Phys: Lorrie Moore Discharge: ������������������ Date of : 67 Report #: [id number] THIS REPORT FOR: //name// CC: Lorrie Gonzalez DATE OF SERVICE: 11/06/2018 CHIEF COMPLAINT: Chronic leg pain and complex regional pain syndrome. HISTORY OF PRESENT ILLNESS: This is a pleasant 53-year-old female who returns to the pain clinic today for refill of her medications. She is upbeat today tells me that the adoption is finally finalized for her 3 grandchildren. She tells me that they had a celebration. She tells me the youngest has been diagnosed with autism, which was not surprising to her. She knew that he had some learning disabilities and she is working on getting him help for that. She tells me she is active with them and her father was recently hospitalized, so she has been very tired with all of this, but she said overall she is doing quite well. Most of her pain is located her hips today in her lower back. It is a burning, sharp pain of a 7/10, worse with movement. She does use her medications and her spinal cord stimulator. At one point, she did mention that the she misses her breakthrough pain pills, but she tells me she is doing reasonably well with her methadone. She has no problems with constipation or daytime sleepiness. The patient tells me that she has not seen [facility] for a second opinion yet. Evidently, they have been having problems getting records that Dr. Gonzalez and our office have sent them. She is going to call them and see if she is able to make an appointment. She tells me she has just been too busy in the past month to deal with that too. ALLERGIES: BEE STINGS, PENICILLIN, CODEINE, SOMA and IBUPROFEN. CURRENT LIST OF MEDICATIONS: Methadone 5 mg to 10 mg per day, naproxen 500 mg p.r.n., Imitrex p.r.n., Prilosec daily, Voltaren gel daily, magnesium, vitamin D, vitamin B12 and Advair. PQRS: 1. The patient has arthritic changes in her neck and back. Denies any rheumatoid arthritis. 2. Height is 5 feet 9 inches, weight is 130 and BMI is 19. 3. VITAL SIGNS: Blood signs 120/68, pulse is 58, respirations 14 and oxygen sat is 100. 4. Pain score 7/10. 5. Denies dizziness. Does not need help walking or standing, has not fallen in the last 3 [place] [address] PAIN MANAGEMENT CONSULTATION Name: MARCO CUMMINS Room #: REG [facility] Naylor#: [id number] Admission: 11/06/18 ������������������ Attend Phys: Lorrie Moore Discharge: ������������������ Date of : 67 Report #: [id number] 6. The patient is not on any blood thinners, does not take medicine for hypertension. 7. Opioid therapy is greater than 6 weeks; therefore, an opioid signed contract is on the chart. Risk assessment tool is low. Functional assessment is 32/70. 8. Recreational drug use, she denies. She does date daily and does not use alcohol. We did check the prescription monitoring system. The patient is filling at [facility] for her methadone in a timely fashion. There is a drug screen on the chart and we will recheck this at her next visit since it has well been a year by them. She tells me she safeguards her meds at all times. PHYSICAL EXAMINATION: GENERAL: This is a pleasant 53-year old who appears more upbeat today. She is alert and orientated a very thin female. HEENT: Normocephalic and atraumatic. Extraocular eye muscles are intact. Mucous membranes are moist. MUSCULOSKELETAL: The patient complains of lumbar pain that radiates into her left leg and her right hip. She has a spinal cord stimulator placed. Her lower extremity strength judged to be 5/5 in all major muscle groups. Complains of pain in various joints all over her body. The patient walks with a slightly antalgic gait. We reviewed the fact that opiate medications are being used to provide analgesia adequate to support activities of daily living, not attempting to achieve a specific pain score on the 0-10 Visual Analog Scale. The current opiate medications are providing sufficient analgesia to allow the patient to participate in activities of daily living. The patient is not exhibiting any aberrant behavior suggestive of drug diversion. The patient is not having any adverse reactions to medications. The patient is not suffering from daytime somnolence or mental acuity changes. The patient is managing opiate-induced constipation with appropriate aucj-qlz-hgbkurh agents and dietary considerations. The patient was counseled on concern for caution with operating a motor vehicle while using opiate medications. A physical exam was performed and the patient's functional status was evaluated. All patients with back pain were advised against the bed rest greater than 4 days and were advised to return to normal activities. Pain score assessment was noted and the treatment plan was reviewed with the patient. All current medications, both prescribed and OTC were reviewed and reconciled on the electronic medical record. Tobacco screening was accomplished and smoking cessation was advised when indicated. BMI was noted and diet/exercise modification was recommended for all patients following outside normal parameters. I reviewed with the patient today their responsibilities to [facility] [address] [place] [address] PAIN MANAGEMENT CONSULTATION Name: MARCO CUMMINS Room #: REG [facility].#: [id number] Admission: 11/06/18 ������������������ Attend Phys: Lorrie Moore Discharge: ������������������ Date of : 67 Report #: [id number] prescription medications, reviewed their responsibility to utilize medications only as prescribed by the physician. They are to seek and receive pain medications only from 1 physician group ( [facility]). They are to use 1 pharmacy and keep the clinic informed if they change pharmacies. Their responsibilities include making followup visits in a timely fashion and to avoid abrupt discontinuation of medication usage. Their responsibilities further include bringing their medications (bottles from the pharmacy with residual pills) to the visit for possible confirmation of pill counts and the patient understands it is their responsibility to submit to random drug screens to ensure both that the medications prescribed are present, and that no other controlled substances are present. All prescriptions provided today were generated electronically. ASSESSMENT: 1. Chronic bilateral leg pain, left greater than the right. 2. History of complex regional pain syndrome with placement of spinal cord stimulator. 3. Depression. 4. Anxiety. 5. Sleep disorder. 6. Management of high-risk medications under terms a written opioid agreement. PLAN: 1. We discussed treatment options with the patient today. The patient tells me that she is doing fairly well on her methadone. This was rewritten today for 10 mg, #75, the patient takes 10 in the morning, 5 midday and 10 at night for today, 4 and 8-week. 2. This according to the CDC guidelines places her at 100 morphine milliequivalent on one conversion or 75 on another conversion. The patient is without problems of constipation or overmedication on this current dose. 3. The patient tells me she is stable on these medications, doing quite well in her family life who recently adopted 3 grandchildren and adjusting to this, she is tired. She tells me from taking care of them and a father that had been in the hospital but in the past, we had given her Remeron to help with her sleep, which was ineffective and she tells me that she thinks part of her being tired is just being so active with the family. 4. The patient will return in 3 months' time. Hopefully, she will be able to see [facility] for a second opinion regarding her pain issues. The patient is seen today in collaboration with Dr. Aldo Trivedi who did see the patient as well. ��������������������������������������������� <ELECTRONICALLY SIGNED> ���������������������������������������� By: Lorrie Moore ��������������������������������������������� 11/06/18 1534 1200 1411 Lorrie Mooer /kam
== END ==
LOC: PAIN 10:00
DX: M79.604 Pain in right leg (principal); M79.605 Pain in left leg; F32.9 Major depressive disorder, single episode, unspecified; F41.9 Anxiety disorder, unspecified; G47.9 Sleep disorder, unspecified; Z79.891 Long term (current) use of opiate analgesic

== ENCOUNTER → 2019-02-08 | Outpatient (CLI) | payer OTHER ==
[~2019-02-08] VITALS: Ht 175.3 cm; Wt 61.9 kg
[~2019-02-08] MED LIST changes: +NAPROSYN500 M1 PO; +SUBOXONE 8 MG-1 EAC3 SUBLING
[2019-02-08 13:23] VITALS: BP 113/63
--- NOTE | 2019-02-08 13:33 | NUR ---
Pain Clinic Assessment: 1. History of Osteoarthritis: neck History of Rheumatoid Arthritis: none 2. Height: 5 ft. 9 in. 175.3 cm. Weight: 136.4 lb. oz. 61.871 kg. Patient's BMI: 20.1 3. Vital Signs: BP: 113/63 Pulse: 62 Resp: 14 Temp: 02 Sat: 100 ECG Mon: 4. Pain Intensity: 7-8 5. Fall Risk: Dizziness: N Needs help standing or walking: N Fallen in the last 3 months: N Fall risk comments: 6. Patient on Blood Thinner: None 7. History of Hypertension: N 8. Opioid Therapy greater than 6 weeks: Y Opiate Contract Signed: 05/30/17 9. Risk Assessment Tool Provided: low-0 10. Functional Assessment Tool: / 11. Recreational Drug Use: Never Drug Type: Tobacco Use: Current Some Day Smoker Tobacco Type: E-Cigarettes Amount or Packs/day: How Many Years: Alcohol Use: No Frequency: Quant:
--- NOTE | 2019-02-09 11:39 | HPC ---
[facility] [address] [place] [address] PAIN MANAGEMENT CONSULTATION Name: MARCO CUMMINS Room #: REG [facility].#: [id number] Admission: 02/08/19 Attend Phys: Lorrie Moore Discharge: Date of : 67 Report #: [id number] THIS REPORT FOR: //name// CC: Lorrie Gonzalez MD DATE OF SERVICE: 02/08/2019 CHIEF COMPLAINT: Chronic leg pain with complex regional pain syndrome. HISTORY OF PRESENT ILLNESS: This is a 53-year-old female who returns to the pain clinic today for a refill of her medications. She is quite tearful today, rating a pain score of 7-8, explaining that her pain is all over her joints, in her hip as well as her legs, stating that worried with the weather changing to winter and her pain has not subsided and gotten used to a decrease of her methadone, wondering what the plan and options were since she does not feel that her pain is well control as she was previously when she was taking methadone and Dilaudid and had more Valium to take per day. She relates that she is having increasing leg cramps at night and is not sleeping as well. She has a burning, constant, cramping pain that is worse again with movement and weather. She does use her spinal cord stimulator and has been taking her methadone, but does not feel it is as effective as it was in the past. ALLERGIES: BEE STINGS, PENICILLIN, CODEINE, SOMA AND IBUPROFEN. CURRENT LIST OF MEDICATIONS: Methadone 10 mg in the morning, 5 midday, 10 at night. Mirtazapine 7.5 mg at bedtime, naproxen 500 mg daily p.r.n., Imitrex as needed, omeprazole 40 mg b.i.d., diclofenac gel as needed, magnesium 400 mg daily, vitamin D, vitamin B12, and Advair. PQRS: 1. The patient has arthritic changes in her neck and back. Denies any rheumatoid arthritis. 2. Height is 5 feet 9 inches, weight is 136, BMI is 20. 3. Vital signs 113/63, pulse is 62, respirations 14, oxygen sat is 100. 4. Pain score is 7-8. 5. Denies dizziness, does not need help walking or standing, has not fallen in the last 3 months. 6. The patient is not on any blood thinners, does not have a history of hypertension. 7. Opiate therapy is greater than 6 weeks; therefore, an opiate signed contract is on the chart. Risk assessment tool is low. Functional assessment is 54/70. 8. Recreational drug use, she denies. She is a current smoker of e-cigs and does not drink alcohol. According to the prescription monitoring system, the patient is filling [address] [address] PAIN MANAGEMENT CONSULTATION Name: MARCO CUMMINS Room #: REG [facility] Dayday#: [id number] Admission: 02/08/19 Attend Phys: Lorrie Moore Discharge: Date of : 67 Report #: [id number] appropriately for her medications. We will check a random drug screen in the next visit. PHYSICAL EXAMINATION: GENERAL: This is a 53-year-old female who is slightly depressed today. She is alert and orientated, anorexic female. HEENT: Normocephalic, atraumatic. Extraocular eye muscles are intact. Mucous membranes are moist. MUSCULOSKELETAL: She has a spinal cord stimulator in place. She has lumbar pain that radiates into her left leg and her bilateral hips. Her lower extremity strength judged to be 5/5 in all major muscle groups. She does complain of pain in all of her joints related to her fibromyalgia. She walks with a slightly antalgic gait. She has significant cramping in her lower extremities. We reviewed the fact that opiate medications are being used to provide analgesia adequate to support activities of daily living, not attempting to achieve a specific pain score on the 0-10 Visual Analog Scale. The current opiate medications are providing sufficient analgesia to allow the patient to participate in activities of daily living. The patient is not exhibiting any aberrant behavior suggestive of drug diversion. The patient is not having any adverse reactions to medications. The patient is not suffering from daytime somnolence or mental acuity changes. The patient is managing opiate-induced constipation with appropriate jakl-xck-ggisxhm agents and dietary considerations. The patient was counseled on concern for caution with operating a motor vehicle while using opiate medications. A physical exam was performed and the patient's functional status was evaluated. All patients with back pain were advised against the bed rest greater than 4 days and were advised to return to normal activities. Pain score assessment was noted and the treatment plan was reviewed with the patient. All current medications, both prescribed and OTC were reviewed and reconciled on the electronic medical record. Tobacco screening was accomplished and smoking cessation was advised when indicated. BMI was noted and diet/exercise modification was recommended for all patients following outside normal parameters. I reviewed with the patient today their responsibilities to safeguard prescription medications, reviewed their responsibility to utilize medications only as prescribed by the physician. They are to seek and receive pain medications only from 1 physician group ([facility]). They are to use 1 pharmacy and keep the clinic informed if they change pharmacies. Their responsibilities include making followup visits in a timely fashion and to avoid abrupt discontinuation of medication usage. Their responsibilities further include bringing their medications (bottles from the pharmacy with residual pills) to the visit for possible confirmation of pill counts and the patient [facility] [address] [place] [address] PAIN MANAGEMENT CONSULTATION Name: MARCO CUMMINS Room #: REG [facility] N[facility]#: [id number] Admission: 02/08/19 Attend Phys: Lorrie Moore Discharge: Date of : 67 Report #: [id number] understands it is their responsibility to submit to random drug screens to ensure both that the medications prescribed are present, and that no other controlled substances are present. All prescriptions provided today were generated electronically. PLAN: 1. We discussed treatment options for greater than 30 minutes and the alternative to methadone. The patient has tried many medications in the past, but she has been on methadone for several years, which had been effective in controlling her pain, thus she has decreased her dose and is no longer on a breakthrough pain medicine. We are trying to be in accordance with the CDC guidelines. The patient feels that she has not been having good pain control as a result of these decrease of medications. The patient had tried fentanyl in the past, Butrans patch that were both ineffective and she had tried Suboxone. She could not remember if that was helpful or not. 2. After discussion with Dr. Aldo Trivedi, we decided to place her on Suboxone as it has a different pain receptor. This would be affecting the mu receptor in her body, so therefore a new medication and we feel that it may be beneficial, Suboxone 8/2 tablet or film, #60 was given. The patient was instructed to not take her methadone this evening and start fresh with her Suboxone tomorrow. She is instructed to call our office in about 3 weeks to report how she is doing and we will call in another month of Suboxone if it is beneficial. 3. The patient has been having significant leg cramps. Dr. Gonzalez has decreased her Valium to 5 mg once a day and previously was on 10 mg. We instructed the patient to try tonic water at night. We could order quinine sulfate, but that is expensive medication. She also reports a friend has some spray that she was going to try on her lower extremities to see if that helps with her leg cramps. 4. The patient will return in 3 months if not sooner. The patient is seen today with Dr. Trivedi who collaborated care and discussed for great lengths the patient's care today. <ELECTRONICALLY SIGNED> By: Lorrie Moore 02/09/19 1139 [id number] Lorrie Moore /kam
== END ==
LOC: PAIN 06:58
DX: M79.609 Pain in unspecified limb (principal); Z88.8 Allergy status to other drugs, medicaments and biological substances; Z88.0 Allergy status to penicillin; Z91.030 Bee allergy status; Z79.899 Other long term (current) drug therapy

== ENCOUNTER → 2019-04-13 | Outpatient (CLI) | payer OTHER | LOC: RAD 13:01 | DX: M47.812 Spondylosis without myelopathy or radiculopathy, cervical region (principal); M48.02 Spinal stenosis, cervical region; M25.78 Osteophyte, vertebrae ==

== ENCOUNTER → 2019-06-18 | Outpatient (CLI) | payer OTHER ==
[~2019-06-18] VITALS: Ht 175.3 cm; Wt 63.0 kg
[2019-06-18 14:28] VITALS: BP 101/67
--- NOTE | 2019-06-18 14:45 | NUR ---
Pain Clinic Assessment: 1. History of Osteoarthritis: neck History of Rheumatoid Arthritis: none 2. Height: 5 ft. 9 in. 175.3 cm. Weight: 138.8 lb. oz. 62.959 kg. Patient's BMI: 20.5 3. Vital Signs: BP: 101/67 Pulse: 64 Resp: 14 Temp: 02 Sat: 100 ECG Mon: 4. Pain Intensity: 6-7 5. Fall Risk: Dizziness: N Needs help standing or walking: N Fallen in the last 3 months: N Fall risk comments: 6. Patient on Blood Thinner: None 7. History of Hypertension: N 8. Opioid Therapy greater than 6 weeks: Y Opiate Contract Signed: 05/30/17 9. Risk Assessment Tool Provided: low-0 10. Functional Assessment Tool: 54/ 11. Recreational Drug Use: Never Drug Type: Tobacco Use: Current Some Day Smoker Tobacco Type: E-Cigarettes Amount or Packs/day: How Many Years: 38 Alcohol Use: No Frequency: Quant:
--- NOTE | 2019-06-19 13:41 | HPC ---
[facility] [address] [place] [address] PAIN MANAGEMENT CONSULTATION Name: MARCO CUMMINS Room #: REG [facility].#: [id number] Admission: 06/18/19 Attend Phys: Lorrie Moore Discharge: Date of : 67 Report #: [id number] THIS REPORT FOR: cc: Alex Gonzalez MD, Christopher MD Hocker,Lorrie HUMPHREYS ~ THIS REPORT FOR: //name// DATE OF SERVICE: 06/18/2019 CHIEF COMPLAINT: Chronic leg pain and complex regional pain syndrome. HISTORY OF PRESENT ILLNESS: This is a 54-year-old female who returns to the pain clinic today for refill of her methadone medication. She reports that her pain score is a 6-7 today. She said winter has been quite rough this year with all over body pain. She states not having breakthrough pain medication has been hard on her, but she is getting by. She is glad that she has naproxen to take on a daily basis as well. She has been using her spinal cord stimulator, but the weather changes do increase her pain in her hip, back, and right leg. It is a burning, constant, cramping pain. The patient does report that she had had some cervical pain issues and shocking in her neck, shoulder, loss of feeling in her left hand. She did call our office, we ordered x-rays, but the patient states she never had those performed. She did follow up with her primary care doctor, Dr. Gonzalez and was evaluated. The symptoms slowly resolved. I informed the patient if these symptoms return to notify us and we will work on getting her in for an x-ray on a more urgent basis. ALLERGIES: BEE STINGS, PENICILLIN, CODEINE, SOMA, IBUPROFEN MEDICATIONS: Naproxen 50 mg b.i.d.; methadone 5 mg in the morning, 5 mg midday, 10 mg at night; omeprazole; diclofenac gel; magnesium; albuterol; vitamin D; vitamin B12; and Advair. PQRS: 1. She has arthritic changes in her neck and back. Denies any rheumatoid arthritis. 2. Height is 5 feet 9 inches, weight is 138, BMI is 20. 3. Vital signs: Blood pressure 101/67, pulse is 64, respirations 14, oxygen sat is 100. 4. Pain score is 6-7. 5. Denies dizziness, does not need help walking or standing, has not fallen in the last [address] [address] PAIN MANAGEMENT CONSULTATION Name: MARCO CUMMINS [id number] Admission: 06/18/19 Attend Phys: Lorrie Moore Discharge: Date of : 67 Report #: [id number] 6. The patient is not on any blood thinners or medicine for hypertension. 7. Opiate therapy is greater than 6 weeks; therefore, an opioid signed contract is on the chart. Risk assessment tool is low. Functional assessment is 54/70. 8. Recreational drug use, she denies. She is a current smoker of e-cigarettes and does not drink alcohol. According to the prescription monitoring system, the patient is filling appropriately for her medications, filling them in a timely fashion. Her current morphine mEq is 75 MME. We will check a random drug screen on her at her next visit. PHYSICAL EXAMINATION: GENERAL: This is alert and orientated, upbeat 54-year-old female, placing her current pain score at 6-7/10. HEENT: Normocephalic, atraumatic. Extraocular eye muscles are intact. Mucous membranes are moist. MUSCULOSKELETAL: She has pain in her lumbar back that radiates in her left foot down her leg with numbness and tingly. Her lower extremity strength judged to be 5/5 in all major muscle groups. She walks with a slightly antalgic gait. She does have a spinal cord stimulator in place. We reviewed the fact that opiate medications are being used to provide analgesia adequate to support activities of daily living, not attempting to achieve a specific pain score on the 0-10 Visual Analog Scale. The current opiate medications are providing sufficient analgesia to allow the patient to participate in activities of daily living. The patient is not exhibiting any aberrant behavior suggestive of drug diversion. The patient is not having any adverse reactions to medications. The patient is not suffering from daytime somnolence or mental acuity changes. The patient is managing opiate-induced constipation with appropriate obac-wij-gqhvpov agents and dietary considerations. The patient was counseled on concern for caution with operating a motor vehicle while using opiate medications. A physical exam was performed and the patient's functional status was evaluated. All patients with back pain were advised against the bed rest greater than 4 days and were advised to return to normal activities. Pain score assessment was noted and the treatment plan was reviewed with the patient. All current medications, both prescribed and OTC were reviewed and reconciled on the electronic medical record. Tobacco screening was accomplished and smoking cessation was advised when indicated. BMI was noted and diet/exercise modification was recommended for all patients following outside normal parameters. I reviewed with the patient today their responsibilities to safeguard prescription medications, reviewed their responsibility to utilize medications only as prescribed by the physician. They are to seek and receive pain [address] [address] PAIN MANAGEMENT CONSULTATION Name: MARCO CUMMINS Room #: REG [facility]#: [id number] Admission: 06/18/19 Attend Phys: Lorrie Moore Discharge: Date of : 67 Report #: [id number] medications only from 1 physician group ( [facility]). They are to use 1 pharmacy and keep the clinic informed if they change pharmacies. Their responsibilities include making followup visits in a timely fashion and to avoid abrupt discontinuation of medication usage. Their responsibilities further include bringing their medications (bottles from the pharmacy with residual pills) to the visit for possible confirmation of pill counts and the patient understands it is their responsibility to submit to random drug screens to ensure both that the medications prescribed are present, and that no other controlled substances are present. All prescriptions provided today were generated electronically. PLAN: 1. We discussed treatment options with the patient today. The patient had a trial of Suboxone at our last visit, though it was ineffective in controlling her pain. She did trial this medicine for a significant amount of time before we restarted her on methadone 10 mg in the morning, 5 mg midday and 10 mg at night. This has been beneficial in controlling her pain again. We will refill these medications for 75 pills for 1 month, sent electronically by Dr. Aldo Trivedi to her pharmacy for a total of 3 months. 2. We did discuss smoking cessation. The patient's recently had a stroke and a heart attack and has been trying to quit smoking as a result of it. The patient has been using e-cigarettes and is working with her to quit smoking and using her e-cigarettes together. 3. The patient will call if she has cervical radicular symptoms in the future. We will try to obtain an x-ray as soon as possible when these symptoms arise. 4. The patient is seen in collaboration with Dr. Aldo Trivedi. <ELECTRONICALLY SIGNED> By: Lorrie Moore 06/19/19 1341 [id number] Lorrie Moore /nt
== END ==
LOC: PAIN 06-16 12:47
DX: M79.606 Pain in leg, unspecified (principal); G89.29 Other chronic pain; Z88.0 Allergy status to penicillin; Z91.030 Bee allergy status; Z88.6 Allergy status to analgesic agent; Z88.8 Allergy status to other drugs, medicaments and biological substances; Z79.899 Other long term (current) drug therapy

== ENCOUNTER → 2019-09-24 | Outpatient (CLI) | payer OTHER ==
[~2019-09-24] VITALS: Ht 175.3 cm; Wt 63.0 kg
[2019-09-24 15:01] VITALS: BP 123/90
--- NOTE | 2019-09-24 15:11 | NUR ---
Pain Clinic Assessment: 1. History of Osteoarthritis: neck History of Rheumatoid Arthritis: none 2. Height: 5 ft. 9 in. 175.3 cm. Weight: 139.0 lb. oz. 63.050 kg. Patient's BMI: 20.5 3. Vital Signs: BP: 123/90 Pulse: 81 Resp: 16 Temp: 02 Sat: 99 ECG Mon: 4. Pain Intensity: 7-8 5. Fall Risk: Dizziness: N Needs help standing or walking: N Fallen in the last 3 months: Y Fall risk comments: 6. Patient on Blood Thinner: None 7. History of Hypertension: N 8. Opioid Therapy greater than 6 weeks: Y Opiate Contract Signed: 05/30/17 9. Risk Assessment Tool Provided: low-0 10. Functional Assessment Tool: / 11. Recreational Drug Use: Never Drug Type: Tobacco Use: Current Some Day Smoker Tobacco Type: Amount or Packs/day: How Many Years: Alcohol Use: No Frequency: Quant:
--- NOTE | 2019-09-25 08:34 | HPC ---
[facility] [address] [place] [address] PAIN MANAGEMENT CONSULTATION Name: MARCO CUMMINS Room #: REG [facility]#: [id number] Admission: 09/24/19 Attend Phys: Lorrie Moore Discharge: Date of : 67 Report #: [id number] THIS REPORT FOR: cc: Alex Gonzalez MD, Christopher MD Hocker,Lorrie HUMPHREYS ~ CC: Aldo Trivedi MD DATE OF SERVICE: 09/24/2019 CHIEF COMPLAINT: Chronic leg pain and complex pain syndrome. HISTORY OF PRESENT ILLNESS: This is a 54-year-old female who is well known to the pain clinic who complains of pain in her low back, shoulders as a result of complex regional pain syndrome. She reports a pain score today is 7-8. It is a burning, aching feeling, worse with weather changes. She feels that her spinal cord stimulator, as well as heat and her medications are very beneficial in controlling her pain. Today, she is here for refill of her methadone. ALLERGIES: BEE STINGS, PENICILLIN, CODEINE, SOMA, IBUPROFEN. CURRENT LIST OF MEDICATIONS: Methadone 10 mg in the morning, 5 mg midday, 10 mg at night, naproxen, omeprazole, diclofenac, magnesium, albuterol, vitamin D, cyclobenzaprine and Advair. PQRS: 1. She has osteoarthritis in her neck. Denies any rheumatoid arthritis. 2. Height is 5 feet 9 inches, weight is 139, BMI is 20. 3. Vital signs 123/90, pulse is 81, respirations 16, oxygen sat is 99. 4. Pain score is 7-8. 5. Fall risk. Denies dizziness, does not need help walking or standing, has not fallen in the last 3 months. 6. The patient is not on any blood thinners or medicine for hypertension. 7. Opioid therapy is greater than 6 weeks; therefore, an opioid signed contract is on the chart. Risk assessment tool is low. Functional assessment is 54/70. 8. Recreational drug use, she denies. She is a current tobacco smoker on some days and she does not drink alcohol. According to the prescription monitoring system, patient is past due to be filled today for her opioid medications according to the CDC guidelines, her morphine mEq per day is 75. We will collect a random drug screen on this patient today. She does state that she has used CBD oil, though according to the label has no THC in the product. PHYSICAL EXAMINATION: [facility] [address] [place] [address] PAIN MANAGEMENT CONSULTATION Name: MRACO CUMMINS [id number] Admission: 09/24/19 Attend Phys: Lorrie Moore Discharge: Date of : 67 Report #: [id number] GENERAL: This is alert and orientated, well-nourished 54-year-old female, placing her current pain score at 6-7. HEENT: Normocephalic, atraumatic. Extraocular eye muscles are intact. She is wearing a mask. MUSCULOSKELETAL: She has pain today that is located in her bilateral legs that radiate to her left foot with numbness and tingly. Her lower extremity strength judged to be 5/5 in all major muscle groups. She has a spinal cord stimulator in place and uses at all times. She has antalgic gait. Complains of tenderness in her bilateral shoulders. We reviewed the fact that opiate medications are being used to provide analgesia adequate to support activities of daily living, not attempting to achieve a specific pain score on the 0-10 Visual Analog Scale. The current opiate medications are providing sufficient analgesia to allow the patient to participate in activities of daily living. The patient is not exhibiting any aberrant behavior suggestive of drug diversion. The patient is not having any adverse reactions to medications. The patient is not suffering from daytime somnolence or mental acuity changes. The patient is managing opiate-induced constipation with appropriate lmlm-qal-fziqkqd agents and dietary considerations. The patient was counseled on concern for caution with operating a motor vehicle while using opiate medications. A physical exam was performed and the patient's functional status was evaluated. All patients with back pain were advised against the bed rest greater than 4 days and were advised to return to normal activities. Pain score assessment was noted and the treatment plan was reviewed with the patient. All current medications, both prescribed and OTC were reviewed and reconciled on the electronic medical record. Tobacco screening was accomplished and smoking cessation was advised when indicated. BMI was noted and diet/exercise modification was recommended for all patients following outside normal parameters. I reviewed with the patient today their responsibilities to safeguard prescription medications, reviewed their responsibility to utilize medications only as prescribed by the physician. They are to seek and receive pain medications only from 1 physician group ( [facility]). They are to use 1 pharmacy and keep the clinic informed if they change pharmacies. Their responsibilities include making followup visits in a timely fashion and to avoid abrupt discontinuation of medication usage. Their responsibilities further include bringing their medications (bottles from the pharmacy with residual pills) to the visit for possible confirmation of pill counts and the patient understands it is their responsibility to submit to random drug screens to ensure both that the medications prescribed are present, and that no other controlled substances are present. All prescriptions provided today were generated electronically. [address] [address] PAIN MANAGEMENT CONSULTATION Name: MARCO CUMMINS Room #: [facility]#: [id number] Admission: 09/24/19 Attend Phys: Lorrie Moore Discharge: Date of : 67 Report #: [id number] PLAN: 1. We discussed treatment options with the patient today. The patient finds her medications very beneficial taking 10 in the morning, 5 midday and 10 at night. We will refill this methadone, #75 for 3 months. These will be sent electronically by Dr. Aldo Trivedi to her pharmacist. 2. We discussed CBD oil and THC in great length. The patient states she has been using some CBD tincture that has been helpful. The patient reports per the label it has no THC in the product. The patient is considering growing her own hemp plant. The patient states she will have it tested to make sure there was no THC in there. She is going to Research this over the next few months. 3. We did collect a random drug screen on the patient today since it had been greater than a year since her last random screen. 4. The patient will be seen again in 3 months. The patient is seen today in collaboration with Dr. Aldo Trivedi. <ELECTRONICALLY SIGNED> By: Lorrie Moore 09/25/19 0834 [id number] Lorrie Moore /nt
== END ==
LOC: PAIN 06:58
DX: G89.4 Chronic pain syndrome (principal); F11.90 Opioid use, unspecified, uncomplicated